=== PATIENT | female | born 1960 | race Caucasian/White ===

== ENCOUNTER 2019-01-08 14:28 | Emergency (ER) | payer MEDICARE, MEDICAID ==
[~2019-01-08] VITALS: Ht 154.9 cm; Wt 75.0 kg
[~2019-01-08 14:28] MED LIST: ALB0.5UD IH; ALBU18HF2 IH; AMLO10TA PO; ATOR20TA66 PO; BECL8.7A7 INH; CARB1TAB36 PO; CHLO25TA2 PO; CLON-527 PO; CYAN250010 PO; CYCL-394 PO; DOCU-273 PO; Depakote PO; FLUO20SO2 PO; HYDR-3965 PO; HYDR12.522 PO; LEVE10002 PO; LISI-600 PO; LORA-660 PO; MONT10TA21 PO; NITR0.4T48 SL; NYST1000 PO; OMEP-84 PO; PHEN-786 PO; PROP40TA72 PO
[2019-01-08 14:49] VITALS: BP 151/93
[2019-01-08 15:36] LABS: BASOPHILS % (AUTO) 0.4 % (0-1); EOSINOPHILS # (AUTO) 0.3 X10'3 (0-0.9); EOSINOPHILS % (AUTO) 2.5 % (0-6); HEMATOCRIT 42.4 % (35.0-45.0); HEMOGLOBIN 14.1 g/dl (12.0-16.0); LYMPHOCYTES # (AUTO) 2.1 X10'3 (1.1-4.8); LYMPHOCYTES % (AUTO) 17.3 % (21-51); MEAN CORPUSCULAR HEMOGLOBIN 30.3 PG (27.0-31.0); MEAN CORPUSCULAR HGB CONC 33.3 g/dL (33.0-36.5); MEAN CORPUSCULAR VOLUME 90.9 FL (78-98); MEAN PLATELET VOLUME 7.6 FL (7.4-10.4); MONOCYTES # (AUTO) 0.9 X10'3 (0-0.9); MONOCYTES % (AUTO) 7.1 % (2-12); NEUTROPHILS # (AUTO) 8.8 X10'3 (1.8-7.7); NEUTROPHILS % (AUTO) 72.7 % (42-75); PLATELET COUNT 482 X10'3 (140-440); RED BLOOD COUNT 4.66 X10'6 (4.20-5.60); RED CELL DISTRIBUTION WIDTH 13.5 % (11.5-14.5); WHITE BLOOD COUNT 12.1 X10'3 (4.5-11.0)
[2019-01-08 15:51] LABS: ALANINE AMINOTRANSFERASE 25 U/L (12-78); ALBUMIN 3.3 G/DL (3.4-5.0); ALBUMIN/GLOBULIN RATIO 0.8 (1.1-1.5); ALKALINE PHOSPHATASE 151 IU/L (46-116); ANION GAP 9 (8-16); ASPARTATE AMINO TRANSFERASE 18 U/L (10-37); BILIRUBIN,TOTAL 0.4 MG/DL (0.1-1.0); BLOOD UREA NITROGEN 20 MG/DL (7-18); BUN/CREATININE RATIO 26.3 (6.6-38.0); CALCIUM 9.5 MG/DL (8.5-10.1); CHLORIDE 105 MMOL/L (99-107); CREATININE 0.76 MG/DL (0.40-0.90); GLUCOSE 98 MG/DL (70-104); POTASSIUM 3.5 MMOL/L (3.5-5.1); SODIUM 142 MMOL/L (135-145); TOTAL CARBON DIOXIDE 27.6 MMOL/L (24-32); TOTAL PROTEIN 7.4 G/DL (6.4-8.2); eGFR 79 ML/MIN
[2019-01-08] MEDS ORDERED: ipratropium/albuterol 3ml nebule NEB ONE (15:55)
[2019-01-08] MEDS ORDERED: PRED20TA PO (16:10)
[2019-01-08] MEDS ORDERED: DOXY100C43 PO (16:10)
== END 2019-01-08 16:31 | disposition home or self-care (01) ==
LOC: ER 14:29
DX: J44.1 Chronic obstructive pulmonary disease with (acute) exacerbation (principal); G43.909 Migraine, unspecified, not intractable, without status migrainosus; I11.0 Hypertensive heart disease with heart failure; I50.9 Heart failure, unspecified; I25.2 Old myocardial infarction; E78.00 Pure hypercholesterolemia, unspecified; K21.9 Gastro-esophageal reflux disease without esophagitis; G89.29 Other chronic pain; F17.210 Nicotine dependence, cigarettes, uncomplicated; Z90.710 Acquired absence of both cervix and uterus; Z98.890 Other specified postprocedural states; Z88.6 Allergy status to analgesic agent; Z91.040 Latex allergy status; Z79.899 Other long term (current) drug therapy
CPT/HCPCS: 36415; 71046; 80053; 83605; 85025; 87040; 93005; 94640; 94760; 99284

== ENCOUNTER 2019-06-23 13:02 | Emergency (ER) | payer MEDICARE, MEDICAID ==
[~2019-06-23] VITALS: Ht 154.9 cm; Wt 65.0 kg
[~2019-06-23 13:02] MED LIST changes: +METH4TAB81 PO
--- NOTE | 2019-06-23 13:17 | NUR ---
Per , pt has had low BP, syncope with LOC approximately 1245. Pt is slow to respond, unable to follow full commands. Last fall x few days ago per family, unkn head trauma. Pupils 3/2 bilaterally. 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 Normally pt is AOx4/ambulatory.
[2019-06-23] MEDS ORDERED: normal saline 1000ML IV soln IVB ONE (13:20)
--- NOTE | 2019-06-23 13:24 | NUR ---
MD at bedside speaking with . XR at bedside. account technician at bedside prepping to move pt to CT.
--- NOTE | 2019-06-23 13:25 | NUR ---
Per , pt was unresponsive for < 30 secs.
--- NOTE | 2019-06-23 13:40 | NUR ---
Pt back from CT, more alert than earlier presentation. Pt states she has fallen at home x2 days ago, but didn't lose consciousness. Pt is currently AOx3, but unaware to event. 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
[2019-06-23 14:08] LABS: BASOPHILS # (AUTO) 0.1 X10'3 (0-0.2); BASOPHILS % (AUTO) 1.2 % (0-1); EOSINOPHILS # (AUTO) 0.4 X10'3 (0-0.9); EOSINOPHILS % (AUTO) 4.8 % (0-6); HEMATOCRIT 40.6 % (35.0-45.0); HEMOGLOBIN 13.7 g/dl (12.0-16.0); LYMPHOCYTES # (AUTO) 2.2 X10'3 (1.1-4.8); LYMPHOCYTES % (AUTO) 28.6 % (21-51); MEAN CORPUSCULAR HEMOGLOBIN 30.9 PG (27.0-31.0); MEAN CORPUSCULAR HGB CONC 33.8 g/dL (33.0-36.5); MEAN CORPUSCULAR VOLUME 91.5 FL (78-98); MEAN PLATELET VOLUME 7.9 FL (7.4-10.4); MONOCYTES # (AUTO) 0.6 X10'3 (0-0.9); MONOCYTES % (AUTO) 8.3 % (2-12); NEUTROPHILS # (AUTO) 4.4 X10'3 (1.8-7.7); NEUTROPHILS % (AUTO) 57.1 % (42-75); PLATELET COUNT 336 X10'3 (140-440); RED BLOOD COUNT 4.44 X10'6 (4.20-5.60); RED CELL DISTRIBUTION WIDTH 13.8 % (11.5-14.5); WHITE BLOOD COUNT 7.6 X10'3 (4.5-11.0)
[2019-06-23 14:21] LABS: PARTIAL THROMBOPLASTIN TIME 27 SECONDS (22-32)
[2019-06-23 14:22] LABS: ALANINE AMINOTRANSFERASE 22 U/L (12-78); ALBUMIN 3.3 G/DL (3.4-5.0); ALKALINE PHOSPHATASE 113 IU/L (46-116); ANION GAP 9 (8-16); ASPARTATE AMINO TRANSFERASE 17 U/L (10-37); BILIRUBIN,TOTAL 0.4 MG/DL (0.1-1.0); BLOOD UREA NITROGEN 14 MG/DL (7-18); BUN/CREATININE RATIO 15.4 (6.6-38.0); CALCIUM 8.7 MG/DL (8.5-10.1); CHLORIDE 109 MMOL/L (99-107); CREATININE 0.91 MG/DL (0.40-0.90); GLUCOSE 97 MG/DL (70-104); POTASSIUM 3.5 MMOL/L (3.5-5.1); SODIUM 144 MMOL/L (135-145); TOTAL CARBON DIOXIDE 25.7 MMOL/L (24-32); TOTAL PROTEIN 6.6 G/DL (6.4-8.2); eGFR 64 ML/MIN
[2019-06-23 14:26] LABS: TROPONIN I < 0.04 NG/ML (0.0-0.05)
[2019-06-23 14:54] LABS: CLARITY,URINE SLIGHTLY CLOUDY (Clear); COLOR,URINE YELLOW (Yellow); GLUCOSE, URINE NEGATIVE (Neg); KETONES,URINE NEGATIVE (Neg); LEUKOCYTE ESTERASE ,URINE NEGATIVE (Neg); NITRITES, URINE NEGATIVE (Neg); OCCULT BLOOD,URINE NEGATIVE (Neg); PH,URINE 5.5 (4.8-8.0); PROTEIN,URINE NEGATIVE (Neg); UROBILINOGEN,URINE 0.2 E.U/dL (0.2-1.0)
[2019-06-23 14:55] LABS: UA COLLECTION TYPE NON-SPECIFIED
[2019-06-23 14:59] LABS: MUCUS STRANDS MODERATE /LPF (Neg); SQUAMOUS EPITHELIAL CELL,UR MODERATE /LPF (FEW)
[2019-06-23 15:00] LABS: HYALINE CASTS 0-3 /LPF (NEGATIVE)
[2019-06-23 15:01] LABS: BACTERIA,URINE FEW /HPF (Neg); RBC,URINE 0-2 /HPF (0-2); WBC,URINE 0-4 /HPF (0-4)
[2019-06-23 15:07] LABS: URINE AMPHETAMINE SCREEN NEGATIVE (Neg); URINE BARBITUATE SCREEN NEGATIVE (Neg); URINE BENZODIAZEPINES SCREEN NEGATIVE (Neg); URINE CANNABINOID SCREEN NEGATIVE (Neg); URINE COCAINE SCREEN NEGATIVE (Neg); URINE METHADONE SCREEN NEGATIVE (Neg); URINE OPIATE SCREEN NEGATIVE (Neg); URINE PHENCYCLIDINE SCREEN NEGATIVE (Neg)
[2019-06-23 16:06] VITALS: BP 143/95
== END 2019-06-23 16:08 | disposition home or self-care (01) ==
LOC: ER 13:03
DX: R55 Syncope and collapse (principal); R42 Dizziness and giddiness; R06.00 Dyspnea, unspecified; G43.909 Migraine, unspecified, not intractable, without status migrainosus; I11.0 Hypertensive heart disease with heart failure; I50.9 Heart failure, unspecified; E78.00 Pure hypercholesterolemia, unspecified; I25.2 Old myocardial infarction; J44.9 Chronic obstructive pulmonary disease, unspecified; K21.9 Gastro-esophageal reflux disease without esophagitis; F17.210 Nicotine dependence, cigarettes, uncomplicated; G89.29 Other chronic pain; Z86.69 Personal history of other diseases of the nervous system and sense organs; Z90.710 Acquired absence of both cervix and uterus; Z98.890 Other specified postprocedural states; Z88.6 Allergy status to analgesic agent; Z88.5 Allergy status to narcotic agent; Z91.040 Latex allergy status; Z79.899 Other long term (current) drug therapy
CPT/HCPCS: 36415; 70450; 71045; 80053; 80305; 81001; 82948; 84145; 84484; 85025; 85610; 85730; 93005; 96360; 99284; J7030

== ENCOUNTER 2020-03-20 16:36 | Emergency (ER) | payer MEDICARE, MEDICAID ==
[~2020-03-20] VITALS: Ht 154.9 cm; Wt 80.6 kg
[~2020-03-20 16:36] MED LIST changes: -CARB1TAB36 PO; -CYAN250010 PO; -DOCU-273 PO; -HYDR-3965 PO; -METH4TAB81 PO; -NYST1000 PO
[2020-03-20] MEDS ORDERED: normal saline 1000ML IV soln IVB ONE ×2 (16:45→19:55)
[2020-03-20 17:16] LABS: BASOPHILS % (AUTO) 0.3 % (0-1); EOSINOPHILS # (AUTO) 0.2 X10'3 (0-0.9); EOSINOPHILS % (AUTO) 1.8 % (0-6); HEMATOCRIT 41.8 % (35.0-45.0); HEMOGLOBIN 13.8 g/dl (12.0-16.0); LYMPHOCYTES # (AUTO) 2.1 X10'3 (1.1-4.8); MEAN CORPUSCULAR HEMOGLOBIN 30.2 PG (27.0-31.0); MEAN CORPUSCULAR HGB CONC 33.1 g/dL (33.0-36.5); MEAN CORPUSCULAR VOLUME 91.3 FL (78-98); MEAN PLATELET VOLUME 8.4 FL (7.4-10.4); MONOCYTES # (AUTO) 1.4 X10'3 (0-0.9); MONOCYTES % (AUTO) 11.6 % (2-12); NEUTROPHILS # (AUTO) 8.6 X10'3 (1.8-7.7); NEUTROPHILS % (AUTO) 69.3 % (42-75); PLATELET COUNT 365 X10'3 (140-440); RED BLOOD COUNT 4.58 X10'6 (4.20-5.60); RED CELL DISTRIBUTION WIDTH 13.1 % (11.5-14.5); WHITE BLOOD COUNT 12.5 X10'3 (4.5-11.0)
[2020-03-20 17:44] LABS: ALANINE AMINOTRANSFERASE 18 U/L (12-78); ALBUMIN 3.4 G/DL (3.4-5.0); ALBUMIN/GLOBULIN RATIO 1.1 (1.1-1.5); ALKALINE PHOSPHATASE 132 IU/L (46-116); ANION GAP 9 (8-16); ASPARTATE AMINO TRANSFERASE 20 U/L (10-37); BILIRUBIN,TOTAL 0.8 MG/DL (0.1-1.0); BLOOD UREA NITROGEN 30 MG/DL (7-18); BUN/CREATININE RATIO 15.5 (6.6-38.0); CALCIUM 8.3 MG/DL (8.5-10.1); CHLORIDE 102 MMOL/L (99-107); CREATININE 1.93 MG/DL (0.40-0.90); ETHANOL < 0.010 GM/DL (0.0-0.010); GLUCOSE 123 MG/DL (70-104); SODIUM 138 MMOL/L (135-145); TOTAL CARBON DIOXIDE 26.6 MMOL/L (24-32); TOTAL PROTEIN 6.5 G/DL (6.4-8.2); TROPONIN I < 0.04 NG/ML (0.0-0.05); eGFR 27 ML/MIN
[2020-03-20 17:49] LABS: POTASSIUM 2.7 MMOL/L (3.5-5.1)
[2020-03-20] MEDS ORDERED: potassium Cl 20 mEq SR tablet PO ONE (18:00)
[2020-03-20 18:12] LABS: CLARITY,URINE CLEAR (Clear); COLOR,URINE YELLOW (Yellow); GLUCOSE, URINE NEGATIVE (Neg); KETONES,URINE NEGATIVE (Neg); LEUKOCYTE ESTERASE ,URINE NEGATIVE (Neg); NITRITES, URINE NEGATIVE (Neg); OCCULT BLOOD,URINE NEGATIVE (Neg); PH,URINE 6.5 (4.8-8.0); PROTEIN,URINE TRACE mg/dl (Neg)
[2020-03-20 18:18] LABS: BACTERIA,URINE FEW /HPF (Neg); RBC,URINE NONE SEEN /HPF (0-2); SQUAMOUS EPITHELIAL CELL,UR FEW /LPF (FEW); UA COLLECTION TYPE STRAIGHT CATH; WBC,URINE 0-4 /HPF (0-4)
[2020-03-20 18:24] LABS: MAGNESIUM 2.2 MG/DL (1.5-2.4)
[2020-03-20 18:26] LABS: URINE AMPHETAMINE SCREEN NEGATIVE (Neg); URINE BARBITUATE SCREEN NEGATIVE (Neg); URINE BENZODIAZEPINES SCREEN NEGATIVE (Neg); URINE CANNABINOID SCREEN NEGATIVE (Neg); URINE COCAINE SCREEN NEGATIVE (Neg); URINE METHADONE SCREEN NEGATIVE (Neg); URINE OPIATE SCREEN NEGATIVE (Neg); URINE PHENCYCLIDINE SCREEN NEGATIVE (Neg)
[2020-03-20] MEDS: potassium Cl 10 mEq/100mL bag IV SCH ×2 (18:27→19:48)
[2020-03-20] MEDS: magnesium 2GM in 50ml NS 50 ML IV SCH ×2 (18:56→19:48)
[2020-03-20] MEDS ORDERED: TRAZ-256 PO (19:17)
[2020-03-20] MEDS ORDERED: LEVE500T PO (19:17)
[2020-03-20] MEDS ORDERED: VALP250S3 PO (19:17)
[2020-03-20] MEDS ORDERED: BUDE10.2 INH (19:17)
[2020-03-20] MEDS ORDERED: ROPI1TAB6 PO (19:17)
[2020-03-20 20:56] VITALS: BP 127/75
== END 2020-03-20 21:45 | disposition home or self-care (01) ==
LOC: ER 16:37
DX: R53.1 Weakness (principal); I95.9 Hypotension, unspecified; E87.6 Hypokalemia; E86.0 Dehydration; N17.9 Acute kidney failure, unspecified; I50.9 Heart failure, unspecified; E78.00 Pure hypercholesterolemia, unspecified; I11.0 Hypertensive heart disease with heart failure; I25.2 Old myocardial infarction; J44.9 Chronic obstructive pulmonary disease, unspecified; K21.9 Gastro-esophageal reflux disease without esophagitis; G89.29 Other chronic pain; Z86.69 Personal history of other diseases of the nervous system and sense organs; Z90.710 Acquired absence of both cervix and uterus; Z98.890 Other specified postprocedural states; Z88.6 Allergy status to analgesic agent; Z88.5 Allergy status to narcotic agent; Z91.040 Latex allergy status; Z79.899 Other long term (current) drug therapy
CPT/HCPCS: 36415; 70450; 71045; 80053; 80305; 80320; 81001; 82140; 82948; 83735; 84439; 84443; 84484; 85025; 93005; 96361; 96365; 96366; 96368; 99285; J3475; J3480; J7030

== ENCOUNTER 2020-06-18 04:20 | Emergency (ER) | payer MEDICARE, MEDICAID ==
[~2020-06-18] VITALS: Ht 154.9 cm; Wt 79.5 kg
[~2020-06-18 04:20] MED LIST changes: -ALB0.5UD IH; -BECL8.7A7 INH; +BUDE10.2 INH; -CLON-527 PO; -Depakote PO; -HYDR12.522 PO; -LEVE10002 PO; +LEVE500T PO; -PHEN-786 PO; +ROPI1TAB6 PO; +TRAZ-256 PO; +VALP250S3 PO
[2020-06-18] MEDS ORDERED: HYDROcodone/acetaminophen 10/325mg tab PO ONE (05:25)
[2020-06-18] MEDS ORDERED: cyclobenzaprine 10mg tablet PO ONE (05:25)
[2020-06-18] MEDS ORDERED: ketorolac trometh. 30mg/ml inj. IM ONE (05:25)
[2020-06-18] MEDS ORDERED: CYCL-1 PO (05:45)
[2020-06-18 06:04] VITALS: BP 172/98
== END 2020-06-18 06:07 | disposition home or self-care (01) ==
LOC: ER 04:21
DX: S29.011A Strain of muscle and tendon of front wall of thorax, initial encounter (principal); G43.909 Migraine, unspecified, not intractable, without status migrainosus; I50.9 Heart failure, unspecified; E78.00 Pure hypercholesterolemia, unspecified; I11.0 Hypertensive heart disease with heart failure; I25.2 Old myocardial infarction; J44.9 Chronic obstructive pulmonary disease, unspecified; K21.9 Gastro-esophageal reflux disease without esophagitis; E11.9 Type 2 diabetes mellitus without complications; G89.29 Other chronic pain; F17.200 Nicotine dependence, unspecified, uncomplicated; Z90.710 Acquired absence of both cervix and uterus; Z98.890 Other specified postprocedural states; Z88.6 Allergy status to analgesic agent; Z91.040 Latex allergy status; Z79.899 Other long term (current) drug therapy; X58.XXXA Exposure to other specified factors, initial encounter; Y93.89 Activity, other specified; Y92.89 Other specified places as the place of occurrence of the external cause; Y99.8 Other external cause status
CPT/HCPCS: 93005; 99284

== ENCOUNTER 2020-09-03 15:32 | Emergency (ER) | payer MEDICARE, MEDICAID ==
[~2020-09-03] VITALS: Ht 154.9 cm; Wt 72.7 kg
[~2020-09-03 15:32] MED LIST changes: +CYCL-1 PO
[2020-09-03 16:29] LABS: BASOPHILS % (AUTO) 0.3 % (0-1); EOSINOPHILS # (AUTO) 0.3 X10'3 (0-0.9); EOSINOPHILS % (AUTO) 3.2 % (0-6); HEMATOCRIT 45.7 % (35.0-45.0); HEMOGLOBIN 15.3 g/dl (12.0-16.0); LYMPHOCYTES # (AUTO) 1.6 X10'3 (1.1-4.8); LYMPHOCYTES % (AUTO) 17.7 % (21-51); MEAN CORPUSCULAR HEMOGLOBIN 30.9 PG (27.0-31.0); MEAN CORPUSCULAR HGB CONC 33.5 g/dL (33.0-36.5); MEAN CORPUSCULAR VOLUME 92.4 FL (78-98); MONOCYTES # (AUTO) 0.9 X10'3 (0-0.9); MONOCYTES % (AUTO) 9.6 % (2-12); NEUTROPHILS # (AUTO) 6.3 X10'3 (1.8-7.7); NEUTROPHILS % (AUTO) 69.2 % (42-75); PLATELET COUNT 393 X10'3 (140-440); RED BLOOD COUNT 4.95 X10'6 (4.20-5.60); RED CELL DISTRIBUTION WIDTH 13.1 % (11.5-14.5); WHITE BLOOD COUNT 9.1 X10'3 (4.5-11.0)
[2020-09-03 16:47] LABS: ALANINE AMINOTRANSFERASE 37 U/L (12-78); ALBUMIN 3.8 G/DL (3.4-5.0); ALBUMIN/GLOBULIN RATIO 1.1 (1.1-1.5); ALKALINE PHOSPHATASE 139 IU/L (46-116); ANION GAP 7 (8-16); ASPARTATE AMINO TRANSFERASE 32 U/L (10-37); BILIRUBIN,TOTAL 0.4 MG/DL (0.1-1.0); BLOOD UREA NITROGEN 19 MG/DL (7-18); BUN/CREATININE RATIO 22.9 (6.6-38.0); CALCIUM 8.8 MG/DL (8.5-10.1); CHLORIDE 105 MMOL/L (99-107); CREATININE 0.83 MG/DL (0.40-0.90); GLUCOSE 96 MG/DL (70-104); POTASSIUM 4.2 MMOL/L (3.5-5.1); SODIUM 140 MMOL/L (135-145); TOTAL PROTEIN 7.4 G/DL (6.4-8.2); eGFR 71 ML/MIN
[2020-09-03 16:58] LABS: C-REACTIVE PROTEIN 0.97 MG/DL (0.0-0.5); FERRITIN 69 NG/ML (8-252); LACTATE DEHYDROGENASE 218 U/L (81-234)
[2020-09-03 17:05] LABS: ABG BASE EXCESS 0.1 mmol/L (-2.0-2.0); ABG HCO3 25.8 mmol/L (22.0-26.0); ABG OXYGEN SATURATION 96.8 % (94-97); ABG PCO2 (T) 45.6 mmHg (32.0-45.0); ABG PO2 (T) 86.1 mmHg (75.0-100.0); FCOHb 3.1 % (0.0-3.9); FLOW 2 L/min; FMetHb 0.1 % (0.0-1.5); FO2Hb 93.7 % (94-97); TOTAL HEMOGLOBIN 15.7 G/dl (12.0-16.0)
[2020-09-03 18:43] VITALS: BP 160/96
== END 2020-09-03 17:38 | disposition home or self-care (01) ==
LOC: ER 15:33
DX: J44.9 Chronic obstructive pulmonary disease, unspecified (principal); G43.909 Migraine, unspecified, not intractable, without status migrainosus; I50.9 Heart failure, unspecified; E78.00 Pure hypercholesterolemia, unspecified; I10 Essential (primary) hypertension; K21.9 Gastro-esophageal reflux disease without esophagitis; E11.9 Type 2 diabetes mellitus without complications; G89.29 Other chronic pain; M54.9 Dorsalgia, unspecified; F17.210 Nicotine dependence, cigarettes, uncomplicated; Z88.6 Allergy status to analgesic agent; Z79.899 Other long term (current) drug therapy
CPT/HCPCS: 36415; 36600; 71045; 80053; 82728; 82803; 83615; 84145; 85018; 85025; 85384; 86140; 87635; 93005; 99285; C9803

== ENCOUNTER 2024-01-21 18:56 | Observation (INO) | payer BC, MEDICAID ==
[~2024-01-21] VITALS: Ht 154.9 cm; Wt 73.0 kg
[~2024-01-21 18:56] MED LIST changes: -FLUO20SO2 PO; +FLUO20SO24 PO; -LISI-600 PO; +LISI20TA28 PO; +LORA-657 PO; -LORA-660 PO; +MONT-48 PO; -MONT10TA21 PO; +ROPI1TAB47 PO; -ROPI1TAB6 PO
[2024-01-21 19:47] LABS: BASOPHILS # (AUTO) 0.1 X10'3 (0-0.2); BASOPHILS % (AUTO) 0.6 % (0-1); EOSINOPHILS # (AUTO) 0.4 X10'3 (0-0.9); HEMATOCRIT 43.3 % (35.0-45.0); HEMOGLOBIN 14.8 g/dl (12.0-16.0); LYMPHOCYTES # (AUTO) 2.4 X10'3 (1.1-4.8); LYMPHOCYTES % (AUTO) 17.6 % (21-51); MEAN CORPUSCULAR HEMOGLOBIN 35.3 PG (27.0-31.0); MEAN CORPUSCULAR HGB CONC 34.2 g/dL (33.0-36.5); MEAN CORPUSCULAR VOLUME 103.2 FL (78-98); MEAN PLATELET VOLUME 8.1 FL (7.4-10.4); MONOCYTES % (AUTO) 7.3 % (2-12); NEUTROPHILS # (AUTO) 9.8 X10'3 (1.8-7.7); NEUTROPHILS % (AUTO) 71.5 % (42-75); PLATELET COUNT 402 X10'3 (140-440); RED BLOOD COUNT 4.19 X10'6 (4.20-5.60); RED CELL DISTRIBUTION WIDTH 14.6 % (11.5-14.5); WHITE BLOOD COUNT 13.7 X10'3 (4.5-11.0)
[2024-01-21 19:52] LABS: BILIRUBIN,URINE NEGATIVE (Neg); CLARITY,URINE TURBID (Clear); COLOR,URINE YELLOW (Yellow); GLUCOSE, URINE NEGATIVE (Neg); KETONES,URINE NEGATIVE (Neg); LEUKOCYTE ESTERASE ,URINE MODERATE (Neg); NITRITES, URINE POSITIVE (Neg); OCCULT BLOOD,URINE LARGE (Neg); PROTEIN,URINE 100 mg/dl (Neg); UROBILINOGEN,URINE 0.2 E.U/dL (0.2-1.0)
[2024-01-21 19:56] LABS: UA COLLECTION TYPE NON-SPECIFIED
[2024-01-21 19:59] LABS: SQUAMOUS EPITHELIAL CELL,UR MANY /LPF (FEW)
[2024-01-21 20:01] LABS: BACTERIA,URINE 4+ /HPF (Neg); WBC,URINE 50-100 /HPF (0-4)
[2024-01-21 20:01] LABS: ALBUMIN 3.3 G/DL (3.4-5.0); ANION GAP 10 (8-16); BLOOD UREA NITROGEN 22 MG/DL (7-18); BUN/CREATININE RATIO 26.2 (10.0-20.0); CHLORIDE 108 MMOL/L (99-107); CREATININE 0.84 MG/DL (0.40-0.90); GLUCOSE 114 MG/DL (70-104); LIPASE 19 U/L (16-77); POTASSIUM 4.1 MMOL/L (3.5-5.1); SODIUM 143 MMOL/L (135-145); eCRCL 53 ML/MIN; eGFR 69 ML/MIN
[2024-01-21] MEDS ORDERED: iohexol 300mg/ml 100ml inj. ONE (20:08)
[2024-01-21] MEDS: cefoxitin sod inj 2,000 MG in normal saline 100ml IV soln 100 ML IV SCH (21:41)
[2024-01-21] MEDS ORDERED: FLUT1BLS16 PO (21:50)
[2024-01-21] MEDS ORDERED: ONDA4TAB12 PO (21:50)
[2024-01-21] MEDS ORDERED: DIVA125C10 PO (21:50)
[2024-01-21] MEDS ORDERED: ACET-75 PO (21:50)
[2024-01-21] MEDS ORDERED: NYST15CR36 TOP (21:50)
[2024-01-21] MEDS ORDERED: PANT40TA54 PO (21:50)
[2024-01-21] MEDS ORDERED: MUPI22OI30 TOP (21:50)
[2024-01-21] MEDS ORDERED: ATOR-2 PO (21:50)
[2024-01-21] MEDS ORDERED: MELO-100 PO (21:50)
[2024-01-21] MEDS ORDERED: BACL20TA PO (21:55)
[2024-01-21] MEDS ORDERED: TOPI25TA49 PO (21:55)
[2024-01-21] MEDS ORDERED: EPIN0.3A3 (21:55)
[2024-01-21] MEDS ORDERED: potassium Cl 20 mEq SR tablet PO PRN ×2 (22:20)
[2024-01-21] MEDS ORDERED: acetaminophen 325mg tablet PO PRN (22:20)
[2024-01-21] MEDS ORDERED: magnesium 2GM in 50ml NS 50 ML IV PRN (22:20)
[2024-01-21] MEDS ORDERED: magnesium 4gm in 100ml NS 100 ML IV PRN (22:20)
[2024-01-21] MEDS ORDERED: magnesium Cl slow-release 64mg tablet PO PRN (22:20)
[2024-01-21] MEDS ORDERED: potassium Cl 40MEQ/1/2NS 520ml 520 ML IV PRN (22:20)
[2024-01-21] MEDS ORDERED: mag hydrox/Alum hydrox/simeth 30ml oral suspension PO PRN (22:20)
[2024-01-21] MEDS ORDERED: ondansetron/PF 4mg/2ml inj IV PRN (22:20)
[2024-01-21] MEDS ORDERED: magnesium hydroxide 30ml (MOM) UD suspension PO PRN (22:20)
[2024-01-21] MEDS: ipratropium/albuterol 3ml nebule NEB SCH (22:35)
[2024-01-21] MEDS ORDERED: albuterol 2.5 MG/3 ML nebule NEB PRN (22:35)
[2024-01-21] MEDS ORDERED: HYDROmorphone 1 mg/ml syringe IV PRN (22:35)
[2024-01-21] MEDS: ketorolac tromethamine 15mg/ml inj. IV ONE (23:10)
[2024-01-21] MEDS: methylPREDNISolone sod succ/PF 40mg inj. IV ONE (23:10)
[2024-01-22] MEDS ORDERED: non-formulary drug (Albuterol Sulfate (Ventolin Hfa) 2 PUFFS) IH SCH
[2024-01-22] MEDS ORDERED: cefoxitin sod inj 2,000 MG in normal saline 100ml IV soln 100 ML IV SCH
[2024-01-22 03:05] VITALS: PULSE 76; RESP 20; O2SAT 93
[2024-01-22 03:11] VITALS: PULSE 75; RESP 20
[2024-01-22 04:01] LABS: BASOPHILS % (AUTO) 0.3 % (0-1); EOSINOPHILS % (AUTO) 0.4 % (0-6); HEMATOCRIT 41.5 % (35.0-45.0); LYMPHOCYTES # (AUTO) 1.1 X10'3 (1.1-4.8); LYMPHOCYTES % (AUTO) 9.2 % (21-51); MEAN CORPUSCULAR HGB CONC 33.8 g/dL (33.0-36.5); MEAN CORPUSCULAR VOLUME 103.5 FL (78-98); MONOCYTES # (AUTO) 0.1 X10'3 (0-0.9); MONOCYTES % (AUTO) 1.2 % (2-12); NEUTROPHILS # (AUTO) 10.9 X10'3 (1.8-7.7); NEUTROPHILS % (AUTO) 88.9 % (42-75); PLATELET COUNT 363 X10'3 (140-440); RED BLOOD COUNT 4.01 X10'6 (4.20-5.60); RED CELL DISTRIBUTION WIDTH 14.8 % (11.5-14.5); WHITE BLOOD COUNT 12.2 X10'3 (4.5-11.0)
[2024-01-22 04:18] LABS: ALANINE AMINOTRANSFERASE 19 U/L (12-78); ALBUMIN 3.2 G/DL (3.4-5.0); ALBUMIN/GLOBULIN RATIO 0.8 (1.1-1.5); ALKALINE PHOSPHATASE 121 IU/L (46-116); ANION GAP 9 (8-16); ASPARTATE AMINO TRANSFERASE 14 U/L (10-37); BILIRUBIN,TOTAL 0.5 MG/DL (0.1-1.0); BLOOD UREA NITROGEN 20 MG/DL (7-18); BUN/CREATININE RATIO 23.3 (10.0-20.0); CALCIUM 9.1 MG/DL (8.5-10.1); CHLORIDE 106 MMOL/L (99-107); CREATININE 0.86 MG/DL (0.40-0.90); GLUCOSE 139 MG/DL (70-104); POTASSIUM 3.9 MMOL/L (3.5-5.1); SODIUM 139 MMOL/L (135-145); TOTAL CARBON DIOXIDE 24.1 MMOL/L (24-32); eCRCL 52 ML/MIN; eGFR 67 ML/MIN
[2024-01-22 06:00] VITALS: BP 148/76; PULSE 68; RESP 16; TEMP 97.2; O2SAT 94
[2024-01-22] MEDS: budesonide 0.5mg/2ml UD nebule IH SCH (07:41)
[2024-01-22 07:42] VITALS: PULSE 68; RESP 15; O2SAT 95
[2024-01-22] MEDS: atorvastatin 20mg tablet PO SCH (07:45)
[2024-01-22] MEDS: docusate sod 100mg capsule PO SCH (07:46)
[2024-01-22] MEDS: levetiracetam 250mg tablet PO SCH (07:46)
[2024-01-22] MEDS: loratadine 10mg tablet PO SCH (07:46)
[2024-01-22] MEDS: FLUoxetine 20mg capsule PO SCH (07:46)
[2024-01-22] MEDS: propranolol 40mg tablet PO SCH (07:48)
[2024-01-22] MEDS: amLODIPine 5mg tablet PO SCH (07:48)
[2024-01-22] MEDS: divalproex sod 125mg sprinkle cap PO SCH (07:49)
[2024-01-22] MEDS: pantoprazole 40mg Tablet.DR PO SCH (07:49)
[2024-01-22] MEDS: baclofen 10mg tablet PO SCH (07:49)
[2024-01-22] MEDS: heparin, porcine 5000 units/ml vial SQ SCH (07:55)
[2024-01-22] MEDS: K and/or MAG REPLACEMENT MC SCH (08:00)
[2024-01-22] MEDS: CefTRIAXone/D5W-Rocephin 1gm 50 ML IV SCH (08:00)
[2024-01-22 08:07] VITALS: PULSE 72; RESP 16
[2024-01-22] MEDS: chlorthalidone 25mg tablet PO SCH (09:57)
[2024-01-22] MEDS: lisinopril 20mg tablet PO SCH (09:58)
[2024-01-22 10:00] VITALS: BP 112/69; PULSE 79; RESP 16; TEMP 97.2; O2SAT 96
[2024-01-22] MEDS ORDERED: CIPR-259 PO (12:56)
[2024-01-22] MEDS ORDERED: topiramate 25mg tablet PO SCH (21:00)
== END 2024-01-22 14:45 | disposition home or self-care (01) ==
LOC: ER 18:57 → ED HOLD 22:24 → ORTHO 4S 01-22 06:39
PROVIDERS: ADMIT Internal Medicine; ATTEND Internal Medicine
DX: N10 Acute pyelonephritis (principal); N39.0 Urinary tract infection, site not specified; D72.829 Elevated white blood cell count, unspecified; I11.0 Hypertensive heart disease with heart failure; I50.9 Heart failure, unspecified; G40.909 Epilepsy, unspecified, not intractable, without status epilepticus; E78.5 Hyperlipidemia, unspecified; G43.909 Migraine, unspecified, not intractable, without status migrainosus; J44.9 Chronic obstructive pulmonary disease, unspecified; K21.9 Gastro-esophageal reflux disease without esophagitis; G89.29 Other chronic pain; E11.9 Type 2 diabetes mellitus without complications; I25.2 Old myocardial infarction; N28.89 Other specified disorders of kidney and ureter; F17.210 Nicotine dependence, cigarettes, uncomplicated; Z88.6 Allergy status to analgesic agent; Z90.710 Acquired absence of both cervix and uterus; Z91.040 Latex allergy status; Z85.42 Personal history of malignant neoplasm of other parts of uterus; Z79.899 Other long term (current) drug therapy
CPT/HCPCS: 36415; 71045; 72170; 74177; 80048; 80053; 81001; 82948; 83690; 83735; 84100; 84484; 85025; 93005; 94640; 94760; 96365; 96366; 96372; 96375; 99285; G0378; J0694; J1644; J1885; J2920; J3490; Q9967

== ENCOUNTER 2024-08-01 10:17 | Emergency (ER) | payer BC, MEDICAID ==
[~2024-08-01] VITALS: Ht 162.6 cm; Wt 72.0 kg
[2024-08-01 10:17] VITALS: TEMP 98.5
[~2024-08-01 10:17] MED LIST changes: +ACET-75 PO; +BACL20TA PO; -CYCL-1 PO; -CYCL-394 PO; +DIVA125C10 PO; +EPIN0.3A3; +FLUT1BLS16 PO; +MUPI22OI30 TOP; +NYST15CR36 TOP; +ONDA-243 PO; +PANT40TA54 PO; +TOPI25TA49 PO
[2024-08-01] MEDS ORDERED: PRED20TA PO (11:18)
[2024-08-01] MEDS ORDERED: CEPH-585 PO (11:18)
[2024-08-01] MEDS ORDERED: DICL20GE TOP (11:22)
[2024-08-01] MEDS ORDERED: IBUP-1985 PO (11:22)
[2024-08-01] MEDS: predniSONE 20 mg tablet PO ONE (11:43)
[2024-08-01] MEDS: cephalexin 250mg capsule PO ONE (11:43)
[2024-08-01 11:54] VITALS: BP 185/110; PULSE 61; RESP 16; O2SAT 98
== END 2024-08-01 11:45 | disposition home or self-care (01) ==
LOC: ER 10:17
DX: M25.532 Pain in left wrist (principal); B35.1 Tinea unguium; L03.311 Cellulitis of abdominal wall; I11.0 Hypertensive heart disease with heart failure; I25.2 Old myocardial infarction; I50.9 Heart failure, unspecified; J44.9 Chronic obstructive pulmonary disease, unspecified; K21.9 Gastro-esophageal reflux disease without esophagitis; E11.9 Type 2 diabetes mellitus without complications; E78.00 Pure hypercholesterolemia, unspecified; G89.29 Other chronic pain; M54.9 Dorsalgia, unspecified; Z88.8 Allergy status to other drugs, medicaments and biological substances; Z91.040 Latex allergy status; Z79.899 Other long term (current) drug therapy; Z79.2 Long term (current) use of antibiotics; Z79.52 Long term (current) use of systemic steroids; Z90.710 Acquired absence of both cervix and uterus; Z98.890 Other specified postprocedural states
CPT/HCPCS: 73110; 99284; J7512

== ENCOUNTER 2025-03-31 11:37 | Outpatient (CLI) | payer MEDICARE, MEDICAID ==
[~2025-03-31 11:37] MED LIST changes: +DICL20GE TOP; +IBUP-1985 PO; +NYST15CR TOP; -NYST15CR36 TOP; +TOPI-255 PO; -TOPI25TA49 PO; +VALP250S26 PO; -VALP250S3 PO; +iohexol 350MG/ML 100ml bottle IV ONE
--- NOTE | 2025-03-31 14:53 | RADIOLOGY REPORT ---
CLINICAL INFORMATION: 65 years old, Female; OTHER SHOULDER LESIONS, LEFT SHOULDER. TECHNIQUE: Multisequence multiplanar MRI images of the left shoulder were obtained without contrast. COMPARISON: None FINDINGS: Acromioclavicular joint: There is moderate acromioclavicular hypertrophy and moderate edema. There is Type 2 acromion. Small amount of fluid in the subacromial / subdeltoid bursa. Rotator cuff tendons: Mild tendinosis of the distal supraspinatus and infraspinatus tendons. Mild art icular surface fraying and small partial-thickness articular surface tear involving the posterior fib ers of the infraspinatus tendon just proximal to the insertion, measuring up to 0.8 cm in transverse dimension 0.7 cm in proximal to distal dimension, involving less than 50% of the tendon thickness. Landin bscapularis and teres minor tendons are intact. Biceps tendon: No significant tendinosis. No evidence of attrition or tear. Labrum: There is T2 hyperintense signal undermining the glenoid attachment of the superior labrum, ap pears more irregular than typically seen for sublabral recess, possible tear. Bones: No fracture or focal marrow contusion. Muscles: Normal muscle bulk. No atrophy. Other: Motion artifact limits evaluation. IMPRESSION: 1. Motion limited study. 2. Rotator cuff tendinosis with articular surface fraying and partial-thickness articular surface tea r of the distal infraspinatus tendon. 3. Moderate acromioclavicular hypertrophy with mild subacromial/subdeltoid bursitis. 4. Signal abnormality undermining the glenoid attachment of the superior labrum, appears more irregul ar than typically seen for sublabral recess, possible tear. Correlate with clinical findings. 5. Additional findings as described above.
== END 2025-03-31 23:59 | disposition home or self-care (01) ==
LOC: MRI02 11:37
PROVIDERS: ATTEND Internal Medicine
DX: M75.102 Unspecified rotator cuff tear or rupture of left shoulder, not specified as traumatic (principal); M75.82 Other shoulder lesions, left shoulder; M89.312 Hypertrophy of bone, left shoulder
CPT/HCPCS: 73221; Q9967